=== PATIENT | female | born 2005 | race Caucasian/White ===

== ENCOUNTER 2024-07-11 17:17 | Emergency (ER) | payer OTHER, BC ==
[~2024-07-11] VITALS: Ht 154.9 cm; Wt 52.8 kg
[2024-07-11 18:10] VITALS: TEMP 98.5
[2024-07-11 19:00] LABS: BASOPHILS # (AUTO) 0.1 X10'3 (0-0.2); BASOPHILS % (AUTO) 0.9 % (0-1); EOSINOPHILS % (AUTO) 0.2 % (0-6); HEMATOCRIT 40.3 % (35.0-45.0); HEMOGLOBIN 14.1 g/dl (12.0-16.0); LYMPHOCYTES # (AUTO) 1.7 X10'3 (1.1-4.8); LYMPHOCYTES % (AUTO) 26.2 % (21-51); MEAN CORPUSCULAR HEMOGLOBIN 32.8 PG (27.0-31.0); MEAN CORPUSCULAR HGB CONC 34.9 g/dL (33.0-36.5); MEAN CORPUSCULAR VOLUME 93.8 FL (78-98); MEAN PLATELET VOLUME 7.7 FL (7.4-10.4); MONOCYTES # (AUTO) 0.4 X10'3 (0-0.9); MONOCYTES % (AUTO) 5.7 % (2-12); NEUTROPHILS # (AUTO) 4.5 X10'3 (1.8-7.7); PLATELET COUNT 299 X10'3 (140-440); WHITE BLOOD COUNT 6.7 X10'3 (4.5-11.0)
[2024-07-11 19:09] LABS: HCG SERUM QL NEGATIVE
[2024-07-11] MEDS ORDERED: iohexol 300mg/ml 100ml inj. ONE (19:14)
[2024-07-11 19:16] LABS: ALANINE AMINOTRANSFERASE 38 U/L (12-78); ALBUMIN 4.1 G/DL (3.4-5.0); ALBUMIN/GLOBULIN RATIO 0.9 (1.1-1.5); ALKALINE PHOSPHATASE 76 IU/L (20-180); ANION GAP 11 (8-16); ASPARTATE AMINO TRANSFERASE 29 U/L (10-37); BILIRUBIN,TOTAL 0.5 MG/DL (0.1-1.0); BLOOD UREA NITROGEN 5 MG/DL (7-18); BUN/CREATININE RATIO 8.5 (10.0-20.0); CALCIUM 9.2 MG/DL (8.5-10.1); CHLORIDE 102 MMOL/L (99-107); CREATININE 0.59 MG/DL (0.40-0.90); GLUCOSE 86 MG/DL (70-104); POTASSIUM 3.7 MMOL/L (3.5-5.1); SODIUM 137 MMOL/L (135-145); TOTAL CARBON DIOXIDE 23.9 MMOL/L (24-32); TOTAL PROTEIN 8.7 G/DL (6.4-8.2); eCRCL 115 ML/MIN; eGFR > 90 ML/MIN
[2024-07-11 19:29] LABS: FREE T4 (FREE THYROXINE) 1.08 NG/DL (0.73-1.40); THYROID STIMULATING HORMONE 0.94 ulU/ml (0.34-4.50)
[2024-07-11] MEDS ORDERED: PRED20TA PO (20:56)
[2024-07-11] MEDS ORDERED: LIDO15SO9 PO (20:56)
[2024-07-11 21:05] VITALS: BP 117/72; PULSE 81; RESP 16; O2SAT 100
== END 2024-07-11 21:08 | disposition home or self-care (01) ==
LOC: ER 17:19
DX: R13.10 Dysphagia, unspecified (principal); I49.9 Cardiac arrhythmia, unspecified
CPT/HCPCS: 36415; 70491; 80053; 84439; 84443; 84703; 85025; 93005; 99285; Q9967